=== PATIENT | female | born 1995 | race Two or more races ===

== ENCOUNTER 2023-02-12 09:00 | Emergency (ER) | payer OTHER ==
[~2023-02-12] VITALS: Ht 157.5 cm; Wt 58.4 kg
[2023-02-12 09:17] VITALS: BP 144/92
[2023-02-12] MEDS ORDERED: AMOX500C2 PO (11:24)
== END 2023-02-12 11:59 | disposition home or self-care (01) ==
LOC: ER 09:00
DX: T16.2XXA Foreign body in left ear, initial encounter (principal); Z88.1 Allergy status to other antibiotic agents; X58.XXXA Exposure to other specified factors, initial encounter; Y93.89 Activity, other specified; Y92.89 Other specified places as the place of occurrence of the external cause; Y99.8 Other external cause status
CPT/HCPCS: 69200

== ENCOUNTER 2023-02-13 08:16 | Emergency (ER) | payer OTHER ==
[~2023-02-13] VITALS: Ht 157.5 cm; Wt 57.9 kg
[~2023-02-13 08:16] MED LIST: AMOX500C2 PO
[2023-02-13 13:46] VITALS: BP 141/89
== END 2023-02-13 13:49 | disposition left against medical advice (07) ==
LOC: ER 08:16
DX: T16.2XXA Foreign body in left ear, initial encounter (principal); Z79.2 Long term (current) use of antibiotics; Z53.21 Procedure and treatment not carried out due to patient leaving prior to being seen by health care provider; X58.XXXA Exposure to other specified factors, initial encounter; Y93.89 Activity, other specified; Y92.89 Other specified places as the place of occurrence of the external cause; Y99.8 Other external cause status

== ENCOUNTER 2023-02-16 08:05 | Emergency (ER) | payer OTHER ==
[~2023-02-16] VITALS: Ht 157.5 cm; Wt 60.0 kg
[2023-02-16 08:24] VITALS: BP 126/82
== END 2023-02-16 08:45 | disposition home or self-care (01) ==
LOC: ER 08:05
DX: T16.2XXA Foreign body in left ear, initial encounter (principal); W22.8XXA Striking against or struck by other objects, initial encounter; Y93.89 Activity, other specified; Y92.89 Other specified places as the place of occurrence of the external cause; Y99.8 Other external cause status